=== PATIENT | male | born 1950 | race African-American/Black ===

== ENCOUNTER 2017-03-04 11:49 | Inpatient (IN) | payer MEDICARE, OTHER ==
[~2017-03-04] VITALS: Ht 177.8 cm; Wt 54.4 kg
[~2017-03-04 11:49] MED LIST: ALBU18HF2 IH; ALBU2.5V13 NEB; ALBU6.7H IH; AMLO10TA80 PO; ATOR10TA PO; AZIT500T2 PO; BUDE180A3 INH; CHOL500010 PO; D-ME118S13 PO; IPRA0.2S51 IH; METH4TAB3 PO; flovent
[2017-03-04] MEDS ORDERED: SODIUM CHLORIDE 0.9% 1,000 ML IV ONE (11:51)
[2017-03-04] MEDS ORDERED: METHYLPREDNISOLONE SOD SUCC 125 MG/2 ML VIAL IV STA (11:51)
[2017-03-04] MEDS ORDERED: ALBUTEROL (0.083%) 2.5MG/3ML NEB HHN STA (11:51)
[2017-03-04] MEDS ORDERED: IPRATROPIUM BROMIDE (0.02%) 0.5MG/2.5ML NEB HHN STA (11:51)
[2017-03-04] MEDS ORDERED: LEVOFLOXACIN 500MG PREMIX 100 ML IV ONE (12:00)
[2017-03-04] MEDS ORDERED: MAGNESIUM 2 G PREMIX 50 ML IV ONE (12:00)
[2017-03-04 12:32] LABS: BASOPHILS % 0.8 % (0.0-2.0); EOSINOPHILS % 2.7 % (0.0-5.0); HEMATOCRIT. 39.9 % (42.0-52.0); HEMOGLOBIN. 13.5 g/dL (14.0-18.0); LYMPHOCYTES % 33.7 % (20.0-50.0); MEAN CORPUSCULAR VOLUME 97.8 fL (80.0-94.0); MEAN PLATELET VOLUME 8.5 fl (7.4-10.4); MONOCYTES % 9.9 % (2.0-8.0); NEUTROPHILS % 52.9 % (40.0-76.0); PLATELET 175 x1000/uL (130-400); RED BLOOD CELL COUNT 4.08 mill/uL (4.7-6.1); RED CELL DISTRIBUTION WIDTH 12.9 % (11.6-14.6)
[2017-03-04 12:36] LABS: INR 1.1
[2017-03-04] MEDS ORDERED: GUAIFENESIN 200MG/10ML SUGAR FREE UDC PO PRN (12:45)
[2017-03-04] MEDS ORDERED: IPRATROPIUM/ALBUTEROL 0.5-3(2.5)MG/3ML NEB INH PRN (12:45)
[2017-03-04] MEDS ORDERED: DOCUSATE SODIUM 100MG CAPSULE PO PRN (12:45)
[2017-03-04] MEDS ORDERED: MAGNESIUM/ALUMINUM HYDROXIDE/SIMETHICONE 30ML UDC PO PRN (12:45)
[2017-03-04] MEDS ORDERED: CLONIDINE 0.1MG TABLET PO PRN (12:45)
[2017-03-04] MEDS ORDERED: ACETAMINOPHEN 325MG TABLET PO PRN (12:45)
[2017-03-04] MEDS ORDERED: ONDANSETRON HCL 4MG/2ML VIAL IV PRN (12:45)
[2017-03-04 12:48] LABS: CARBON DIOXIDE 31 mEq/L (21-32); CHLORIDE 105 mEq/L (98-107); ETHANOL BLOOD < 10 mg/dL; TROPONIN I < 0.02 ng/mL (0.00-0.04)
[2017-03-04 13:11] LABS: CHLORIDE 106 mEq/L (98-107)
[2017-03-04 13:19] LABS: CARBON DIOXIDE 29 mEq/L (21-32)
[2017-03-04 13:21] LABS: BG BASE EXCESS -1.1 mmol/L (-2.0-2.0); BG BILEVEL POS AIRWAY PRESSURE 15/5; BG CARBOXYHEMOGLOBIN 1.5 % (0.5-1.5); BG DEOXYHEMOGLOBIN 0.7 % (0.0-5.0); BG FRACTION INSPIRED OXYGEN 40; BG HCO3 ACT 24.3 mmol/L (22.0-26.0); BG METHEMOGLOBIN 0.3 % (0.0-1.5); BG OXYGEN SATURATION 99.3 % (92.0-98.5); BG OXYHEMOGLOBIN 97.5 % (94.0-97.0); BG PCO2 43.2 mmHg (35.0-45.0); BG PH 7.368 (7.350-7.450); BG PO2 231.7 mmHg (75.0-100.0); BG SAMPLE SITE RIGHT RADIAL; BG VENT MODE MASK - BIPAP; BG VENT RATE 18 set
[2017-03-04 15:30] VITALS: BP 131/65
[2017-03-04] MEDS ORDERED: SODIUM CHLORIDE 0.9% 1000ML BAG (SEPSIS BOLUS) IV ONE (15:30)
[2017-03-04 15:37] LABS: CREATINE KINASE MB FRACTION 11.5 ng/mL (0.5-3.6)
[2017-03-04] MEDS ORDERED: IPRATROPIUM/ALBUTEROL 0.5-3(2.5)MG/3ML NEB HHN PRN (15:45)
[2017-03-04 15:54] VITALS: BP 128/65
[2017-03-04] MEDS ORDERED: AMLO10TA4 PO (16:27)
[2017-03-04] MEDS ORDERED: LATA2.5D2 EACHEYE (16:29)
[2017-03-04] MEDS: AZITHROMYCIN 500 MG TABLET PO SCH (17:14)
[2017-03-04] MEDS: ENOXAPARIN 40MG/0.4ML SYR SUBCUT SCH (17:15)
[2017-03-04 20:32] VITALS: BP 136/81
[2017-03-04 23:27] LABS: CREATINE KINASE MB FRACTION 15.1 ng/mL (0.5-3.6)
[2017-03-04] MEDS: METHYLPREDNISOLONE SOD SUCC 40 MG/ML VIAL IV SCH (23:48)
[2017-03-05] VITALS (7 sets, daily range): BP systolic 103–138; BP diastolic 62–82
[2017-03-05] MEDS: IPRATROPIUM/ALBUTEROL 0.5-3(2.5)MG/3ML NEB HHN SCH ×6 (00:13→21:11)
[2017-03-05] MEDS: METHYLPREDNISOLONE SOD SUCC 40 MG/ML VIAL IV SCH ×2 (03:06→12:00)
[2017-03-05 06:24] LABS: BASOPHILS % 0.2 % (0.0-2.0); HEMOGLOBIN. 14.6 g/dL (14.0-18.0); LYMPHOCYTES % 16.6 % (20.0-50.0); MEAN CORPUSCULAR HEMOGLOBIN 33.1 pg (28.0-32.0); MEAN CORPUSCULAR VOLUME 97.5 fL (80.0-94.0); MONOCYTES % 2.2 % (2.0-8.0); PLATELET 178 x1000/uL (130-400); RED BLOOD CELL COUNT 4.41 mill/uL (4.7-6.1); RED CELL DISTRIBUTION WIDTH 13.1 % (11.6-14.6)
[2017-03-05] MEDS ORDERED: PNEUMOCOCCAL 23-VAL P-SAC VAC 0.5 ML IM ONE (08:00)
[2017-03-05] MEDS: BUDESONIDE 0.5MG/2ML NEB HHN SCH ×2 (08:25→21:11)
[2017-03-05] MEDS: AZITHROMYCIN 500 MG TABLET PO SCH (08:32)
[2017-03-05] MEDS: PREDNISONE 20MG TABLET PO SCH (18:10)
[2017-03-05] MEDS: ENOXAPARIN 40MG/0.4ML SYR SUBCUT SCH (18:12)
[2017-03-05] MEDS: ATORVASTATIN CALCIUM 20MG TABLET PO SCH (21:07)
[2017-03-06] VITALS: BP 114/65
[2017-03-06] MEDS: IPRATROPIUM/ALBUTEROL 0.5-3(2.5)MG/3ML NEB HHN SCH ×6 (01:39→21:10)
[2017-03-06 04:00] VITALS: BP 102/81
[2017-03-06 06:45] LABS: BASOPHILS % 0.4 % (0.0-2.0); HEMATOCRIT. 38.8 % (42.0-52.0); HEMOGLOBIN. 13.4 g/dL (14.0-18.0); LYMPHOCYTES % 7.1 % (20.0-50.0); MEAN CORPUSCULAR VOLUME 98.2 fL (80.0-94.0); MEAN PLATELET VOLUME 9.1 fl (7.4-10.4); MONOCYTES % 4.4 % (2.0-8.0); NEUTROPHILS % 88.1 % (40.0-76.0); PLATELET 169 x1000/uL (130-400); RED BLOOD CELL COUNT 3.95 mill/uL (4.7-6.1)
[2017-03-06 06:47] LABS: CARBON DIOXIDE 30 mEq/L (21-32); CHLORIDE 103 mEq/L (98-107)
[2017-03-06 08:00] VITALS: BP 133/78
[2017-03-06] MEDS: PREDNISONE 20MG TABLET PO SCH ×2 (08:45→17:04)
[2017-03-06] MEDS: AZITHROMYCIN 500 MG TABLET PO SCH (08:48)
[2017-03-06] MEDS: BUDESONIDE 0.5MG/2ML NEB HHN SCH (11:50)
[2017-03-06 12:00] VITALS: BP 129/73
[2017-03-06 16:00] VITALS: BP 150/84
[2017-03-06 18:12] LABS: BG BASE EXCESS 5.3 mmol/L (-2.0-2.0); BG CARBOXYHEMOGLOBIN 0.4 % (0.5-1.5); BG DEOXYHEMOGLOBIN 3.3 % (0.0-5.0); BG FRACTION INSPIRED OXYGEN 32; BG HCO3 ACT 30.9 mmol/L (22.0-26.0); BG METHEMOGLOBIN 0.3 % (0.0-1.5); BG OXYGEN SATURATION 96.7 % (92.0-98.5); BG PCO2 48.8 mmHg (35.0-45.0); BG PH 7.419 (7.350-7.450); BG PO2 92.1 mmHg (75.0-100.0); BG SAMPLE SITE LEFT RADIAL; BG VENT MODE NASAL CANNULA
[2017-03-06 20:00] VITALS: BP 135/72
[2017-03-06] MEDS ORDERED: ATORVASTATIN CALCIUM 20MG TABLET PO SCH (21:00)
[2017-03-06] MEDS: ATORVASTATIN CALCIUM 20MG TABLET PO SCH (21:21)
[2017-03-06] MEDS: ENOXAPARIN 40MG/0.4ML SYR SUBCUT SCH (21:24)
[2017-03-07 00:43] VITALS: BP 103/53
[2017-03-07] MEDS: IPRATROPIUM/ALBUTEROL 0.5-3(2.5)MG/3ML NEB HHN SCH ×4 (00:47→12:10)
[2017-03-07] MEDS: BUDESONIDE 0.5MG/2ML NEB HHN SCH ×2 (00:47→08:04)
[2017-03-07 04:00] VITALS: BP 134/69
[2017-03-07 06:26] LABS: BASOPHILS % 0.1 % (0.0-2.0); HEMATOCRIT. 39.4 % (42.0-52.0); HEMOGLOBIN. 13.8 g/dL (14.0-18.0); LYMPHOCYTES % 12.2 % (20.0-50.0); MEAN CORPUSCULAR VOLUME 97.2 fL (80.0-94.0); MEAN PLATELET VOLUME 9.3 fl (7.4-10.4); MONOCYTES % 5.6 % (2.0-8.0); NEUTROPHILS % 82.1 % (40.0-76.0); PLATELET 160 x1000/uL (130-400); RED BLOOD CELL COUNT 4.06 mill/uL (4.7-6.1); RED CELL DISTRIBUTION WIDTH 12.9 % (11.6-14.6)
[2017-03-07 07:00] LABS: CARBON DIOXIDE 33 mEq/L (21-32); CHLORIDE 99 mEq/L (98-107)
[2017-03-07 08:00] VITALS: BP 104/65
[2017-03-07] MEDS: PREDNISONE 20MG TABLET PO SCH (08:40)
[2017-03-07] MEDS: AZITHROMYCIN 500 MG TABLET PO SCH (08:40)
[2017-03-07 12:00] VITALS: BP 103/70
== END 2017-03-07 15:47 | disposition home or self-care (01) | DRG 189 ==
LOC: ER 11:51 → 7WST 12:26 → EDBEDREQSVC 12:27 → EDBEDREQ 12:27 → ENRESERV 13:49
PROVIDERS: ADMIT Internal Medicine; ATTEND Internal Medicine
PROC: 5A09357 Assistance with Respiratory Ventilation, Less than 24 Consecutive Hours, Continuous Positive Airway Pressure (ICD-10-PCS; principal; 2017-03-04)
DX: J96.00 Acute respiratory failure, unspecified whether with hypoxia or hypercapnia (principal); J18.9 Pneumonia, unspecified organism; R65.10 Systemic inflammatory response syndrome (SIRS) of non-infectious origin without acute organ dysfunction; J44.0 Chronic obstructive pulmonary disease with (acute) lower respiratory infection; J44.1 Chronic obstructive pulmonary disease with (acute) exacerbation; Z99.81 Dependence on supplemental oxygen; I10 Essential (primary) hypertension; F17.210 Nicotine dependence, cigarettes, uncomplicated; E78.5 Hyperlipidemia, unspecified; Z71.6 Tobacco abuse counseling; Z79.899 Other long term (current) drug therapy
CPT/HCPCS: 36415; 36600; 71010; 80048; 80053; 80061; 82375; 82550; 82553; 82805; 83605; 83690; 83735; 83880; 84443; 84484; 85025; 85610; 87040; 87070; 87086; 93005; 93970; 94640; 94644; 94660; 94664; 96365; 96366; 96368; 96372; 99291; G0482; J1650; J1956; J2920; J2930; J3475; J7030; J7512; J7611; J7620; J7626